=== PATIENT | male | born 1985 | race African-American/Black ===

== ENCOUNTER 2017-04-01 06:36 | Emergency (ER) | payer OTHER ==
[~2017-04-01] VITALS: Ht 182.9 cm; Wt 90.9 kg
[~2017-04-01 06:36] MED LIST: ADV500 PUFF; ALBU17AE27 IH; DEXA4 PO; PRED20TA3 PO
[2017-04-01 06:41] VITALS: BP 132/93
[2017-04-01] MEDS ORDERED: UNK ALLERGY MED PO (06:50)
[2017-04-01] MEDS ORDERED: MOME13HF IH (06:50)
[2017-04-01] MEDS ORDERED: PERTUSS(ACELL),DIPH,TET VAC/PF 0.5 ML VIAL IM ONE (07:15)
[2017-04-01] MEDS ORDERED: IBUPROFEN 600 MG TABLET PO ONE (07:15)
== END 2017-04-01 07:36 | disposition home or self-care (01) ==
LOC: EMS 06:40
DX: S01.01XA Laceration without foreign body of scalp, initial encounter (principal); J45.909 Unspecified asthma, uncomplicated; F12.90 Cannabis use, unspecified, uncomplicated; Z87.891 Personal history of nicotine dependence; W45.8XXA Other foreign body or object entering through skin, initial encounter; Y93.89 Activity, other specified; Y92.89 Other specified places as the place of occurrence of the external cause; Y99.8 Other external cause status
CPT/HCPCS: 90471; 90715; 99283

== ENCOUNTER 2017-05-01 11:14 | Emergency (ER) | payer OTHER ==
[~2017-05-01] VITALS: Ht 182.9 cm; Wt 90.9 kg
[~2017-05-01 11:14] MED LIST changes: -ADV500 PUFF; -DEXA4 PO; +MOME13HF IH; -PRED20TA3 PO; +UNK ALLERGY MED PO
[2017-05-01] MEDS ORDERED: ALBU8HFA4 IH (11:27)
[2017-05-01 13:00] VITALS: BP 120/73
[2017-05-01] MEDS ORDERED: IBUPROFEN 800 MG TABLET PO ONE (13:00)
[2017-05-01] MEDS ORDERED: ACETAMINOPHEN 500 MG TABLET PO ONE (13:00)
== END 2017-05-01 13:33 | disposition home or self-care (01) ==
LOC: EMS 11:15
DX: S13.4XXA Sprain of ligaments of cervical spine, initial encounter (principal); M54.6 Pain in thoracic spine; J45.909 Unspecified asthma, uncomplicated; Z91.011 Allergy to milk products; Z91.013 Allergy to seafood; Z87.891 Personal history of nicotine dependence; V49.40XA Driver injured in collision with unspecified motor vehicles in traffic accident, initial encounter; Y93.89 Activity, other specified; Y92.89 Other specified places as the place of occurrence of the external cause; Y99.8 Other external cause status
CPT/HCPCS: 72040; 99284